=== PATIENT | female | born 1995 | race Caucasian/White ===

== ENCOUNTER 2024-03-18 07:25 | Emergency (ER) | payer OTHER ==
[~2024-03-18] VITALS: Ht 162.6 cm; Wt 74.4 kg
[2024-03-18] MEDS ORDERED: SPIRONOLACTONE25 MG PO (07:54)
[2024-03-18] MEDS: SODIUM CHLORIDE 0.9% 1000ML 1,000 ML IV ONE (08:16)
[2024-03-18] MEDS: KETOROLAC TROMETHAMINE 30 MG/ML VIAL IV STA (08:17)
[2024-03-18] MEDS: ONDANSETRON HCL INJ 2MG/ML 2ML 2 MG/ML VIAL IV STA (08:17)
[2024-03-18] MEDS: Morphine 4mg INJECTION 4 MG/ML INJ IV ONE (09:44)
[2024-03-18] MEDS ORDERED: FLOMAX0.4 MG PO (10:17)
[2024-03-18] MEDS ORDERED: CEPHALEXIN500 MG PO (10:17)
[2024-03-18] MEDS ORDERED: KETOROLAC TROME10 MG PO (10:17)
[2024-03-18] MEDS ORDERED: ONDANSETRON ODT4 MG PO (10:21)
[2024-03-18 10:32] VITALS: O2SAT 100
== END 2024-03-18 10:32 | disposition home or self-care (01) ==
LOC: EDBD 07:25 → FSED 07:31
DX: R11.2 Nausea with vomiting, unspecified (principal); N13.2 Hydronephrosis with renal and ureteral calculous obstruction; K82.8 Other specified diseases of gallbladder; R10.31 Right lower quadrant pain
CPT/HCPCS: 74176; 80053; 81003; 81025; 85025; 99284

== ENCOUNTER 2025-07-17 10:43 | Emergency (ER) | payer OTHER ==
[~2025-07-17] VITALS: Ht 162.6 cm; Wt 65.0 kg
[~2025-07-17 10:43] MED LIST: CEPHALEXIN500 MG PO; FLOMAX0.4 MG PO; KETOROLAC TROME10 MG PO; ONDANSETRON ODT4 MG PO; SPIRONOLACTONE25 MG PO
[2025-07-17 10:45] VITALS: PULSE 90; RESP 18; TEMP 99
[2025-07-17] MEDS: KETOROLAC TROMETHAMINE 30 MG/ML VIAL IV STA (11:06)
[2025-07-17] MEDS: SODIUM CHLORIDE 0.9% 1000ML 1,000 ML IV ONE (11:06)
[2025-07-17] MEDS: ONDANSETRON HCL INJ 2MG/ML 2ML 2 MG/ML VIAL IV STA (11:06)
[2025-07-17] MEDS: Morphine 2mg Syringe 2 MG/ML SYR IV ONE (11:06)
[2025-07-17] MEDS ORDERED: ULTRAM 50MG50 MG PO ×2 (12:13→12:17)
[2025-07-17 12:31] VITALS: BP 119/68; PULSE 76; RESP 20; TEMP 98.6; O2SAT 96
== END 2025-07-17 12:30 | disposition home or self-care (01) ==
LOC: FSED 10:46
DX: R11.2 Nausea with vomiting, unspecified (principal); N20.2 Calculus of kidney with calculus of ureter; R10.12 Left upper quadrant pain; F41.9 Anxiety disorder, unspecified
CPT/HCPCS: 74176; 80053; 81003; 81025; 85025; 99283; J0696; J1885; J2270; J2405; J7030